=== PATIENT | female | born 1980 | race American Indian/Alaskan Native ===

== ENCOUNTER 2019-01-03 11:08 | Emergency (ER) | payer BC ==
--- NOTE | 2019-01-03 11:27 | Emergency Department Report ---
Blank Doc - Documentation Documentation: 38-year-old female that presents with history of anxiety and wheezing. Stated has taken albuterol inhaler has resolved her wheezing. This initial assessment/diagnostic orders/clinical plan/treatment(s) is/are subject to change based on patient's health status, clinical progression and re- assessment by fellow clinical providers in the ED. Further treatment and workup at subsequent clinical providers discretion. Patient/guardians urged not to elope from the ED as their condition may be serious if not clinically assessed and managed. Initial orders include: 1- Patient sent to [facility] for further evaluation and treatment
[2019-01-03 11:28] VITALS: BP 108/81
--- NOTE | 2019-01-03 11:43 | Emergency Department Report ---
ED Anxiety HPI - General Chief Complaint: Chest Pain Stated Complaint: ASTHMA/CHEST PAIN Time Seen by Provider: 01/03/19 11:23 Source: patient Mode of arrival: Ambulatory - History of Present Illness Initial Comments: This is a 38-year-old female nontoxic, well in appearance with no signs of distress presents to the ED for anxiety. Patient stated that her cousin has been murder this morning which trigger her anxiety. Patient stated she started to have wheezing when anxiety has started and has taken her inhaler which resolved it. Patient stated has been out of Xanax medication and that is why she came to the ED today. Denies any SI/HI. Patient denies any urinary symptoms. Patient denies any fever, chills, headache, nausea, vomiting, chest pain or shortness of breathe. Denies any other symptoms or complaints. MD Complaint: anxiety, shortness of breath -: This morning Symptoms: dyspnea Previous History of Same: Yes Severity: mild Quality: similar to prior episodes Provoking factors: emotional stress Improves With: medication Worsens With: thinking about event Associated symptoms: shortness of breath, denies other symptoms. denies: chest pain, palpitations, diaphoresis, confusion, cough, fever/chills, headaches, anorexia, malaise, nausea/vomiting, rash, seizure, syncope, weakness - Related Data Home Medications: Previous Rx's Medication Instructions Recorded Last Taken Type clonazePAM [ Klonopin] 0.5 mg PO BID PRN #6 tab 01/03/19 Unknown Rx Allergies/Adverse Reactions: Allergies Allergy/AdvReac Type Severity Reaction Status Date / Time lisinopril Allergy Angioedema Verified 01/03/19 11:24 ED Review of Systems ROS: Stated complaint: ASTHMA/CHEST PAIN Other details as noted in HPI Constitutional: denies: chills, fever Eyes: denies: eye pain, eye discharge, vision change ENT: denies: ear pain, throat pain Respiratory: shortness of breath, wheezing. denies: cough Cardiovascular: denies: chest pain, palpitations Endocrine: no symptoms reported Gastrointestinal: denies: abdominal pain, nausea, diarrhea Genitourinary: denies: urgency, dysuria, discharge Musculoskeletal: denies: back pain, joint swelling, arthralgia Skin: denies: rash, lesions Neurological: denies: headache, weakness, paresthesias Psychiatric: anxiety. denies: depression Hematological/Lymphatic: denies: easy bleeding, easy bruising ED Past Medical Hx - Past Medical History Hx Hypertension: Yes Hx Psychiatric Treatment: Yes (ANXIETY) Hx Asthma: Yes - Surgical History Past Surgical History?: No Additional Surgical History: CROHNS DISEASE - Social History Smoking Status: Never Smoker Substance Use Type: None - Medications Home Medications: Home Medications Medication Instructions Recorded Confirmed Last Taken Type clonazePAM [ Klonopin] 0.5 mg PO BID PRN #6 tab 01/03/19 Unknown Rx ED Physical Exam - General Limitations: No Limitations General appearance: alert, in no apparent distress - Head Head exam: Present: atraumatic, normocephalic - Neck Neck exam: Present: normal inspection, full ROM. Absent: tenderness, meningismus, lymphadenopathy - Respiratory Respiratory exam: Present: normal lung sounds bilaterally. Absent: respiratory distress, wheezes, rales, rhonchi, stridor, chest wall tenderness, accessory muscle use, decreased breath sounds, prolonged expiratory - Cardiovascular Cardiovascular Exam: Present: regular rate, normal rhythm, normal heart sounds. Absent: bradycardia, tachycardia, irregular rhythm, systolic murmur, diastolic murmur, rubs, gallop - GI/Abdominal GI/Abdominal exam: Present: soft, normal bowel sounds. Absent: distended, tenderness, guarding, rebound, rigid, diminished bowel sounds - Extremities Exam Extremities exam: Present: normal inspection, full ROM, normal capillary refill - Back Exam Back exam: Present: normal inspection, full ROM - Neurological Exam Neurological exam: Present: alert, oriented X3, normal gait - Psychiatric Psychiatric exam: Present: normal mood, anxious. Absent: depressed, agitated, flat affect, manic, homicidal ideation, suicidal ideation - Skin Skin exam: Present: warm, dry, intact, normal color. Absent: rash ED Course Vital Signs 01/03/19 11:25 Temperature 98.6 F Pulse Rate 82 Respiratory 20 Rate Blood Pressure 108/81 O2 Sat by Pulse 96 Oximetry - Reevaluation(s) Reevaluation #1: 01/03/19 11:50 Patient is speaking in full sentences with no signs of distress noted. - Consultations Consultation #1: 01/03/19 11:50 Patient was consulted with Minerva Marcial about patient history and exam and agrees to the discharge plan of care. ED Medical Decision Making - Medical Decision Making 38-year-old female that presents with anxiety and medication refill. EKG was done with normal sinus rhythm. CARLINE score 0 points. [place] 0 points for PE. Currtnly deneis any chest pain or SOB. Stated just has anxiety. Will refill mediations and recieved [facility] follow-up for anxiety. Patient was instructed to Follow-up with a primary care doctor in 3-5 days or if symptoms worsen and continue return to emergency room as soon as possible. At time of discharge, the patient does not seem toxic or ill in appearance. No acute signs of distress noted. Patient agrees to discharge treatment plan of care. No further questions noted by the patient. - Differential Diagnosis anxiety, PE, STEMI Critical care attestation.: If time is entered above; I have spent that time in minutes in the direct care of this critically ill patient, excluding procedure time. ED Disposition Clinical Impression: Anxiety, Medication refill Disposition: DC-01 TO HOME OR SELFCARE Is pt being admited?: No Does the pt Need Aspirin: No Condition: Stable Instructions: Anxiety (ED), Clonazepam (By mouth) Additional Instructions: Follow-up with a primary care doctor in 3-5 days or if symptoms worsen and continue return to the emergency department as soon as possible. Prescriptions: clonazePAM [ Klonopin] 0.5 mg PO BID PRN #6 tab PRN Reason: Anxiety Referrals: KIMBERLEE SAGE MD [Primary Care Provider] - 3-5 Days PRIMARY [facility]ARE, [Referring] - 3-5 Days KELLY GARCIA MD [Staff Physician] - 3-5 Days [facility] [Outside] - 3-5 Days [facility] [Outside] - 3-5 Days Forms: Work/School Release Form(ED)
== END 2019-01-03 12:59 | disposition home or self-care (01) ==
LOC: ED 11:08
DX: F41.9 Anxiety disorder, unspecified (principal); J45.909 Unspecified asthma, uncomplicated; Z76.0 Encounter for issue of repeat prescription; Z79.899 Other long term (current) drug therapy; Z88.8 Allergy status to other drugs, medicaments and biological substances
CPT/HCPCS: 93005; 93010

== ENCOUNTER 2019-06-18 10:17 | Emergency (ER) | payer BC ==
[2019-06-18 10:40] VITALS: BP 122/85
--- NOTE | 2019-06-18 11:07 | XRay Report ---
CHEST 1 VIEW INDICATION / CLINICAL INFORMATION: Chest Pain. COMPARISON: None available. FINDINGS: SUPPORT DEVICES: None. HEART / MEDIASTINUM: No significant abnormality. LUNGS / PLEURA: No significant pulmonary or pleural abnormality. No pneumothorax. ADDITIONAL FINDINGS: No significant additional findings. IMPRESSION: 1. No acute findings. Signer Name: Altagracia Belcher MD Signed: 06/18/2019 11:03 AM Workstation Name: [id number]
[2019-06-18 11:12] LABS: Basophils % (Auto) 0.1 % (0.0-1.8); Hematocrit 36.7 % (30.3-42.9); Hemoglobin 11.8 gm/dl (10.1-14.3); Lymphocytes # (Auto) 1.2 K/mm3 (1.2-5.4); Lymphocytes % (Auto) 6.6 % (13.4-35.0); Mean Corpuscular HGB Conc 32 % (30-34); Mean Corpuscular Volume 87 fl (79-97); Monocytes % (Auto) 5.3 % (0.0-7.3); Platelet Count 281 K/mm3 (140-440); Red Blood Count 4.23 M/mm3 (3.65-5.03); Red Cell Distribution Width 14.9 % (13.2-15.2)
[2019-06-18 11:32] LABS: BUN/Creatinine Ratio 10; Blood Urea Nitrogen 9 mg/dL (7-17); Hemolysis Index 7
[2019-06-18] MEDS ORDERED: LORazepam 1 MG TAB PO ONE (12:04)
--- NOTE | 2019-06-18 12:04 | Emergency Department Report ---
ED Chest Pain HPI - General Chief Complaint: Chest Pain Stated Complaint: CP/ASTHMA Time Seen by Provider: 06/18/19 11:33 Source: patient Mode of arrival: Ambulatory Limitations: No Limitations - History of Present Illness Initial Comments: This is a 39-year-old female with a history of anxiety and asthma who presents the ED complaining of mild chest pain that initially began 2 days ago and was not getting better. Patient states that she is currently visiting from out of town and is out of her current inhaler for asthma. Patient states that due to the fact that she has a history of asthma and anxiety she came in to be evaluated. Patient states she is out of her Klonopin. Patient denies shortness of breath, coughing. Patient states she also has a history of lupus so she has prednisone at home which she takes. Patient is states she has been out of her inhaler and anxiety medication and thinks she had anxiety attack. She denies fever/chills/coughing/shortness of breath/nausea vomiting abdominal pain or any other symptoms. MD Complaint: chest pain -: days(s) (2) - Related Data Previous Rx's Medication Instructions Recorded Last Taken Type Albuterol INH(or & Nicu Only) 2 puff IH QID PRN #8.5 gram 06/18/19 Unknown Rx [ProAir HFA Inhaler] clonazePAM [KlonoPIN] 0.5 mg PO BID PRN #6 tab 06/18/19 Unknown Rx Allergies Allergy/AdvReac Type Severity Reaction Status Date / Time lisinopril Allergy Angioedema Verified 01/03/19 11:24 Heart Score - HEART Score History: Slightly suspicious EKG: Normal Age: < 45 Risk factors: No known risk factors Troponin: < normal limit HEART Score: 0 ED Review of Systems ROS: Stated complaint: CP/ASTHMA Other details as noted in HPI Comment: All other systems reviewed and negative ED Past Medical Hx - Past Medical History Previous Medical History?: Yes Hx Hypertension: Yes Hx Psychiatric Treatment: Yes (ANXIETY) Hx Asthma: Yes - Surgical History Past Surgical History?: Yes Additional Surgical History: CROHNS DISEASE - Social History Smoking Status: Never Smoker Substance Use Type: None - Medications Home Medications: Home Medications Medication Instructions Recorded Confirmed Last Taken Type Albuterol INH(or & Nicu Only) 2 puff IH QID PRN #8.5 gram 06/18/19 Unknown Rx [ProAir HFA Inhaler] clonazePAM [KlonoPIN] 0.5 mg PO BID PRN #6 tab 06/18/19 Unknown Rx ED Physical Exam - General Limitations: No Limitations General appearance: alert, in no apparent distress - Head Head exam: Present: atraumatic, normocephalic - Eye Eye exam: Present: normal appearance - ENT ENT exam: Present: mucous membranes moist - Neck Neck exam: Present: normal inspection - Respiratory Respiratory exam: Present: normal lung sounds bilaterally. Absent: respiratory distress, wheezes, rales, rhonchi, chest wall tenderness, accessory muscle use - Cardiovascular Cardiovascular Exam: Present: regular rate, normal rhythm. Absent: systolic murmur, diastolic murmur, rubs, gallop - GI/Abdominal GI/Abdominal exam: Present: soft, normal bowel sounds - Extremities Exam Extremities exam: Present: normal inspection - Back Exam Back exam: Present: normal inspection - Neurological Exam Neurological exam: Present: alert, oriented X3, CN II-XII intact, normal gait - Psychiatric Psychiatric exam: Present: normal affect, normal mood - Skin Skin exam: Present: warm, dry, intact, normal color. Absent: rash ED Course Vital Signs 06/18/19 10:36 Temperature 98.5 F Pulse Rate 81 Respiratory 20 Rate Blood Pressure 122/85 O2 Sat by Pulse 98 Oximetry ED Medical Decision Making - Lab Data Result diagrams: 06/18/19 11:00 06/18/19 11:00 Laboratory Last Values WBC 18.7 K/mm3 (4.5-11.0) H 06/18/19 11:00 RBC 4.23 M/mm3 (3.65-5.03) 06/18/19 11:00 Hgb 11.8 gm/dl (10.1-14.3) 06/18/19 11:00 Hct 36.7 % (30.3-42.9) 06/18/19 11:00 MCV 87 fl (79-97) 06/18/19 11:00 MCH 28 pg (28-32) 06/18/19 11:00 MCHC 32 % (30-34) 06/18/19 11:00 RDW 14.9 % (13.2-15.2) 06/18/19 11:00 Plt Count 281 K/mm3 (140-440) 06/18/19 11:00 Lymph % (Auto) 6.6 % (13.4-35.0) L 06/18/19 11:00 [place] % (Auto) 5.3 % (0.0-7.3) 06/18/19 11:00 Eos % (Auto) 0.0 % (0.0-4.3) 06/18/19 11:00 Baso % (Auto) 0.1 % (0.0-1.8) 06/18/19 11:00 Lymph # 1.2 K/mm3 (1.2-5.4) 06/18/19 11:00 [place] # 1.0 K/mm3 (0.0-0.8) H 06/18/19 11:00 Eos # 0.0 K/mm3 (0.0-0.4) 06/18/19 11:00 Baso # 0.0 K/mm3 (0.0-0.1) 06/18/19 11:00 Seg Neutrophils % 88.0 % (40.0-70.0) H 06/18/19 11:00 Seg Neutrophils # 16.5 K/mm3 (1.8-7.7) H 06/18/19 11:00 Sodium 140 mmol/L (137-145) 06/18/19 11:00 Potassium 4.4 mmol/L (3.6-5.0) 06/18/19 11:00 Chloride 103.4 mmol/L (98-107) 06/18/19 11:00 Carbon Dioxide 19 mmol/L (22-30) L 06/18/19 11:00 Anion Gap 22 mmol/L 06/18/19 11:00 BUN 9 mg/dL (7-17) 06/18/19 11:00 Creatinine 0.9 mg/dL (0.7-1.2) 06/18/19 11:00 Estimated GFR > 60 ml/min 06/18/19 11:00 BUN/Creatinine Ratio 10 % 06/18/19 11:00 Glucose 131 mg/dL (65-100) H 06/18/19 11:00 Calcium 9.0 mg/dL (8.4-10.2) 06/18/19 11:00 Troponin T < 0.010 ng/mL (0.00-0.029) 06/18/19 11:00 - EKG Data EKG shows normal: sinus rhythm Rate: normal - EKG Data Interpretation: no acute changes, normal EKG - Radiology Data Radiology results: report reviewed, image reviewed CHEST 1 VIEW INDICATION / CLINICAL INFORMATION: Chest Pain. COMPARISON: None available. FINDINGS: SUPPORT DEVICES: None. HEART / MEDIASTINUM: No significant abnormality. LUNGS / PLEURA: No significant pulmonary or pleural abnormality. No pneumothorax. ADDITIONAL FINDINGS: No significant additional findings. IMPRESSION: 1. No acute findings. Signer Name: Altagracia Belcher MD Signed: 06/18/2019 11:03 AM Workstation Name: [id number] Transcribed By: Dictated By: Altagracia Belcher MD Electronically Authenticated By: Altagracia Belcher MD Signed Date/Time: 06/18/19 1103 - Medical Decision Making 39-year-old female who presented with possible anxiety attack. Chest pain protocol labs were ordered. All labs were negative troponin negative, x-ray negative, EKG normal. Discussed with patient that I will refill albuterol inhaler and gave her couple days worth of antianxiety medication. I discussed with patient to return follow-up with her primary care physician upon returning home. Patient is in no respiratory distress or acute distress during ED. Vital signs are normal. Critical care attestation.: If time is entered above; I have spent that time in minutes in the direct care of this critically ill patient, excluding procedure time. ED Disposition Clinical Impression: Asthma, Anxiety attack Disposition: DC-01 TO HOME OR SELFCARE Is pt being admited?: No Does the pt Need Aspirin: No Condition: Stable Instructions: Asthma (ED) Additional Instructions: Make sure to follow up with the primary care physician as discussed. Take all your medications as you've been prescribed. If you have any worsening symptoms or develop new symptoms please return to ED immediately. Prescriptions: clonazePAM [KlonoPIN] 0.5 mg PO BID PRN #6 tab PRN Reason: Anxiety Albuterol INH(or & Nicu Only) [ProAir HFA Inhaler] 2 puff IH QID PRN #8.5 gram PRN Reason: Shortness Of Breath Referrals: PRIMARY CARE, [Primary Care Provider] - 3-5 Days Forms: Work/School Release Form(ED) Time of Disposition: 12:16
== END 2019-06-18 12:39 | disposition home or self-care (01) ==
LOC: ED 10:17
DX: J45.909 Unspecified asthma, uncomplicated (principal); I10 Essential (primary) hypertension; F41.8 Other specified anxiety disorders; K50.90 Crohn's disease, unspecified, without complications; Z88.6 Allergy status to analgesic agent
CPT/HCPCS: 36415; 71045; 80048; 84484; 85025; 93005; 93010

== ENCOUNTER 2020-07-10 10:29 | Emergency (ER) | payer BC, OTHER ==
--- NOTE | 2020-07-10 13:36 | Emergency Department Report ---
ED General Adult HPI - General Chief complaint: Dyspnea/Respdistress Stated complaint: ASTHMA/ANXIETY PUI?: No Time Seen by Provider: 07/10/20 12:46 Source: patient Mode of arrival: Ambulatory Limitations: No Limitations - History of Present Illness Initial comments: This is a 40-year-old female with a history of asthma and anxiety disorder who presents to the ED for anxiety/asthma that began last night. Patient states that she just had a recent in the family couple of days ago. Patient states she states she has been very anxious because she has to drive back home to [place] for the . Patient states that she normally uses her rescue inhaler for her asthma attack which she has been taking it she should watch for asthma. Patient states that she feels more like this is anxiety attack which in the past she was taking Ativan that resolved her tabs. Patient states she has not been to her primary care due to the pandemic so she has not been taking her meds. Patient denies fever/chills/nausea vomiting/coughing/shortness of breath/chest pain/headache/blurry vision. - Related Data Previous Rx's Medication Instructions Recorded Last Taken Type Albuterol Mdi (or & Nicu Only) 2 puff IH QID PRN #8.5 gram 06/18/19 Unknown Rx [ProAir HFA Inhaler] clonazePAM [KlonoPIN] 0.5 mg PO BID PRN #6 tab 06/18/19 Unknown Rx Linaclotide [Linzess] 290 mcg PO DAILY 90 Days #90 08/24/19 Unknown Rx capsule Polyethylene Glycol/Elect 4,000 ml PO ONCE #1 bottle 08/24/19 Unknown Rx [Golytely] Promethazine [Phenergan] 25 mg PO Q6HR PRN #10 tab 08/24/19 Unknown Rx LORazepam [Ativan] 1 mg PO QHS #6 tab 07/10/20 Unknown Rx Allergies Allergy/AdvReac Type Severity Reaction Status Date / Time lisinopril Allergy Angioedema Verified 01/03/19 11:24 ED Review of Systems ROS: Stated complaint: ASTHMA/ANXIETY Other details as noted in HPI Comment: All other systems reviewed and negative ED Past Medical Hx - Past Medical History Hx Hypertension: Yes Hx Psychiatric Treatment: Yes (ANXIETY) Hx Asthma: Yes - Surgical History Additional Surgical History: CROHNS DISEASE - Social History Smoking Status: Never Smoker Substance Use Type: None - Medications Home Medications: Home Medications Medication Instructions Recorded Confirmed Last Taken Type Albuterol Mdi (or & Nicu Only) 2 puff IH QID PRN #8.5 gram 06/18/19 Unknown Rx [ProAir HFA Inhaler] clonazePAM [KlonoPIN] 0.5 mg PO BID PRN #6 tab 06/18/19 Unknown Rx Linaclotide [Linzess] 290 mcg PO DAILY 90 Days #90 08/24/19 Unknown Rx capsule Polyethylene Glycol/Elect 4,000 ml PO ONCE #1 bottle 08/24/19 Unknown Rx [Golytely] Promethazine [Phenergan] 25 mg PO Q6HR PRN #10 tab 08/24/19 Unknown Rx LORazepam [Ativan] 1 mg PO QHS #6 tab 07/10/20 Unknown Rx ED Physical Exam - General Limitations: No Limitations General appearance: alert, in no apparent distress - Head Head exam: Present: atraumatic, normocephalic - Eye Eye exam: Present: normal appearance - ENT ENT exam: Present: mucous membranes moist - Neck Neck exam: Present: normal inspection - Respiratory Respiratory exam: Present: normal lung sounds bilaterally. Absent: respiratory distress - Cardiovascular Cardiovascular Exam: Present: regular rate, normal rhythm. Absent: systolic murmur, diastolic murmur, rubs, gallop - GI/Abdominal GI/Abdominal exam: Present: soft, normal bowel sounds - Extremities Exam Extremities exam: Present: normal inspection - Back Exam Back exam: Present: normal inspection - Neurological Exam Neurological exam: Present: alert, oriented X3 - Psychiatric Psychiatric exam: Present: normal affect, normal mood - Skin Skin exam: Present: warm, dry, intact, normal color. Absent: rash ED Course Vital Signs 07/10/20 10:55 Temperature 98.3 F Pulse Rate 93 H Respiratory 18 Rate Blood Pressure 133/85 [Right] O2 Sat by Pulse 97 Oximetry ED Medical Decision Making - Medical Decision Making This 40-year-old female presented with anxiety disorder Plan is to prescribe a few days worth of and follow-up with her primary care physician. Patient was in no acute or respiratory distress in the ED. Patient did not have any medical emergency - Differential Diagnosis Asthma exacerbation, panic disorder, bronchitis Critical care attestation.: If time is entered above; I have spent that time in minutes in the direct care of this critically ill patient, excluding procedure time. ED Disposition Clinical Impression: Panic disorder Disposition: DC-01 TO HOME OR SELFCARE Is pt being admited?: No Does the pt Need Aspirin: No Condition: Stable Instructions: Panic Attack, Uarx-uy-Flah, Managing Anxiety, Adult Additional Instructions: Make sure to follow up with the primary care physician as discussed. Take all your medications as you've been prescribed. If you have any worsening symptoms or develop new symptoms please return to ED immediately. Prescriptions: LORazepam [Ativan] 1 mg PO QHS #6 tab Referrals: PRIMARY CARE, [Primary Care Provider] - 3-5 Days [facility] [Provider Group] - 3-5 Days Forms: Work/School Release Form(ED) Time of Disposition: 13:38
== END 2020-07-10 14:00 | disposition home or self-care (01) ==
LOC: ED 10:29
CPT/HCPCS: 99281